=== PATIENT | female | born 1935 | race Caucasian/White ===

== ENCOUNTER → 2016-06-27 | Outpatient (CLI) | payer MEDICARE ==
[~2016-06-27] MED LIST: AC325T PO; ALBU90AE INH; AMOX1TAB12 PO; ARFO15VI2 IH; ARIP2TAB9 PO; ASPI-586 PO; ASPI-860 PO; ATEN-155 PO; ATOR10TA PO; ATOR40TA2 PO; AZIT250T5 PO; AZIT500T PO; BUDE0.5A5 INH; CEFD300C PO; CLON0.5T PO; CLON1TAB3 PO; CPR500T PO; DARI7.5T3 PO; DONE5TAB4 PO; DUONEB 0.5 MG-33 ML IH; FLUT16SP NSEACH; GFN600TCR PO; HYDR-3702 PO; LEVO500T16 PO; LISI-595 PO; LORA0.5T PO; LSRT50T PO; LVF500T GT; MELO-255 PO; MIRT15TA98 PO; MULT-351 PO; NF-FLON16G; OMEP20CA12 PO; OMEP20CA6 PO; ONDA4TAB41 PO; ONDA8TAB6 PO; OXYGEN; PANT40TA2 PO; PHEN-725 PO; PREG150C PO; RIVA1.5C2 PO; SCR1T1 PO; SUCR1TAB29 PO; TRIA1TAB18 PO; TRM50T PO; VENL150C PO; VENL75TA2 PO; VENL75TA62 PO; WARF3TAB PO
[2016-06-27 10:31] LABS: MEAN CORPUSCULAR HEMOGLOBIN 30.3 PG (26.0-34.0); MEAN CORPUSCULAR HGB CONC 33.6 g/dL (31.0-37.0); MEAN CORPUSCULAR VOLUME 90 FL (80-100); MEAN PLATELET VOLUME 9.8 FL (6.0-9.5); PLATELET COUNT 225 10^3uL (150-450); WHITE BLOOD COUNT 7.86 10^3uL (4.0-11.0)
[2016-06-27 11:02] LABS: ANION GAP 15.1 MEQ/L (3-15); CALCULATED IONIZED CALCIUM 4.1 mg/dL (3.8-4.6); MAGNESIUM* 2.2 mg/dL (1.6-2.3); PHOSPHORUS 3.9 mg/dL (2.4-4.9); TOTAL PROTEIN 7.4 g/dL (6.4-8.5)
[2016-06-27 11:27] LABS: BAND NEUTROPHILS % 1 % (0-6); EOSINOPHILS % 2 % (0-4); LYMPHOCYTES # 1.8 #; MONOCYTES # 0.6 #; MONOCYTES % 9 % (3-11); RBC MORPH NORMAL (NORMAL); SEGMENTED NEUTROPHILS % 65 % (51-67); TOTAL CELLS COUNTED 100
--- NOTE | 2016-06-27 12:16 | Diagnostic Imaging Report ---
INDICATION: Postmenopausal. COMPARISON: 02/11/2005. FINDINGS: This scan is considered normal according to [employer] guidelines. Please refer to the detailed Bone Density report faxed separately from this report. IMPRESSION: 1. Normal bone mineralization. 2. No significant change from comparison examination. Dictated by: Dictated on workstation # [id number]
== END ==
LOC: RAD 10:08
PROVIDERS: ATTEND Internal Medicine Hematology & Oncology
DX: C50.411 Malignant neoplasm of upper-outer quadrant of right female breast (principal); C50.511 Malignant neoplasm of lower-outer quadrant of right female breast; Z78.0 Asymptomatic menopausal state
CPT/HCPCS: 36415; 77080; 80053; 82306; 83615; 83735; 84100; 85007; 85027; 86300

== ENCOUNTER → 2016-09-02 | Outpatient (REF) | payer MEDICARE ==
[2016-09-02 11:30] LABS: BILIRUBIN,URINE Negative (Negative); CLARITY,URINE Clear; COLOR,URINE Yellow; GLUCOSE, URINE (UA) Negative (Negative); LEUKOCYTE ESTERASE ,URINE Negative (Negative); UROBILINOGEN,URINE 0.2 mg/dL (0.2-1.0)
== END ==
LOC: LAB 11:15
PROVIDERS: ATTEND Family Medicine
DX: R30.0 Dysuria (principal)
CPT/HCPCS: 81003

== ENCOUNTER → 2016-09-19 | Outpatient (CLI) | payer MEDICARE ==
[2016-09-19 10:28] LABS: MEAN CORPUSCULAR HEMOGLOBIN 29.8 PG (26.0-34.0); MEAN CORPUSCULAR HGB CONC 32.5 g/dL (31.0-37.0); MEAN CORPUSCULAR VOLUME 92 FL (80-100); MEAN PLATELET VOLUME 9.4 FL (6.0-9.5); PLATELET COUNT 241 10^3uL (150-450); WHITE BLOOD COUNT 7.92 10^3uL (4.0-11.0)
[2016-09-19 10:51] LABS: BAND NEUTROPHILS % 0 % (0-6); EOSINOPHILS % 1 % (0-4); LYMPHOCYTES # 2.8 #; MONOCYTES # 0.5 #; MONOCYTES % 7 % (3-11); RBC MORPH NORMAL (NORMAL); SEGMENTED NEUTROPHILS % 56 % (51-67); TOTAL CELLS COUNTED 100
[2016-09-19 10:52] LABS: ALBUMIN 4.1 g/dL (3.4-5.0); ANION GAP 14.8 MEQ/L (3-15); CALCULATED IONIZED CALCIUM 4.1 mg/dL (3.8-4.6); PHOSPHORUS 4.2 mg/dL (2.4-4.9); TOTAL PROTEIN 7.5 g/dL (6.4-8.5)
== END ==
LOC: LAB 08-25 13:43
PROVIDERS: ATTEND Internal Medicine Hematology & Oncology
DX: C50.411 Malignant neoplasm of upper-outer quadrant of right female breast (principal); C50.511 Malignant neoplasm of lower-outer quadrant of right female breast
CPT/HCPCS: 36415; 80053; 83615; 83735; 84100; 85007; 85027; 86300

== ENCOUNTER → 2016-09-30 | Outpatient (REF) | payer MEDICARE | LOC: LAB 11:53 | PROVIDERS: ATTEND Family Medicine | DX: E78.4 Other hyperlipidemia (principal) | CPT/HCPCS: 83721 ==